=== PATIENT | female | born 1945 | race Caucasian/White ===

== ENCOUNTER 2016-10-26 17:58 | Observation (INO) | payer MEDICARE, MEDICAID ==
[~2016-10-26] VITALS: Ht 152.4 cm; Wt 88.9 kg
[2016-10-26 18:08] VITALS: BP 193/61; PULSE 94; RESP 16; O2SAT 97
--- NOTE | 2016-10-26 18:12 | ED.REPORT ---
HPI-Neurologic Deficit Date of Service Oct 26, 2016 ED Provider: Robson Farrell MD Pt is a 71 year old female with a history of type II diabetes who presents to the ED with a possible stroke onset around 1720 tonight. The family stated that the pt was normal while at the store, and when they drove away, her speech was clear but the words did not make sense. The pt states she was aware of her expressive aphasia at the time. Upon arrival to the ED, pt's slurred speech had cleared. Pt denies any other neurological deficits or symptoms at this time. Duration of symptoms was less than one half hour. No headache, trouble swallowing, now weakness or facial droop. . Nursing Notes Stated Complaint: SLURRED SPEECH/POSS STROKE Chief Complaint: Neuro Symptoms/ Deficits Nursing Notes Reviewed: Yes Allergies: Coded Allergies: ibuprofen (Verified Allergy, Severe, Abdominal Pain, 10/17/15) diazepam (Verified Allergy, Intermediate, Entergic, 10/17/15) Scheduled Insulin Glargine (Lantus U100 Solostar Insulin Pen) 100 Unit/1 Ml Insuln.pen 22- 24 UNIT SUBQ HS General Time Seen by Provider: 18:10 Chief Complaint Slurred speech Hx Obtained From: Patient, Son, Daughter Arrived By: Walk-in Sudden in Onset?: Yes Onset Occurred: 1 - 4 hours ago (1 hour ago) Severity: Current: No pain currently Severity: Maximum: No pain Related History: Reports: Diabetes mellitus Recent Healthcare: Recent doctor visit Similar Sx Previous: Yes Past Medical History Past Medical History Notes: PCP - Dr. Sirisha Ascencio Past Medical History Injured trapezius muscle Reports: Diabetes mellitus Past Surgical History denies Smoking History Unknown if Ever Smoker Social History Other Social History: Good social support, Local resident Ambulatory Status Wheelchair Review of Systems Expressive aphasia, resolved Neurologic: Reports: Slurred speech (resolved) Complete sys rev & neg: except as marked. Physical Exam Physical Exam Notes: Stroke scale 0 Initial Vital Signs Vital Signs (First) Date Time Temp Pulse Resp B/P Pulse Ox O2 Delivery O2 Flow Rate FiO2 10/26/16 18:08 36.6 94 16 193/61 97 Room Air Initial VS: Reviewed Extremities: Vascular intact, Neuro intact, No swelling, No tenderness Skin: Warm, Dry, No cyanosis Psychiatric: Mood/affect normal, Behavior normal, Normal thought content General/Constitutional: Awake, Alert Head / Eyes: Atraumatic, Normocephalic Irregular right pupil fixed, baseline Left pupil round and reactive Respiratory / Chest: Atraumatic, Breath sounds NL, Breath sounds = bilat, No respiratory distress Cardiovascular: Heart rate NL, Regular rhythm, Heart sounds NL, No gallop, No murmurs, No rubs Neurologic: Oriented X3, Speech NL (fluent) No facial droop or asymmetry Neck: Supple, Full range of motion, No carotid bruit Abdomen: Soft, Non-tender, BS normoactive Interpretation & Diagnostics CT ANGIO OF HEAD/NECK: IMPRESSION: 1. Mild bilateral internal carotid artery stenoses. 2. Patent bilateral vertebral arteries. 3. Incompletely visualized patchy right upper lobe opacity, consistent with pneumonia. Plain radiography of the chest is recommended for further assessment. Dictated by: Bossman Mathias M.D. on 10/26/2016 at 20:54 Approved by: Bossman Mathias M.D. on 10/26/2016 at 20:57 Lab Results Interpretation Result Diagram: 10/26/16 1846 10/26/16 1846 Test 10/26/16 18:46 White Blood Count 9.6th/mm3 (3.8-10.1) Red Blood Count 4.38mil/mm3 (3.90-5.20) Hemoglobin 12.5g/dL (12.0-15.6) Hematocrit 37.8% (35.0-46.0) Mean Corpuscular Volume 86.3fL (81-100) Mean Corpuscular Hemoglobin 28.5pg (27.0-35.0) Mean Corpuscular Hemoglobin Concent 33.1% (32.0-37.0) Red Cell Distribution Width 13.6% (12.3-15.4) Platelet Count 225bil/L (150-400) Neutrophils (%) (Auto) 70.7% (40-74) Lymphocytes (%) (Auto) 21.6% (14-46) Monocytes (%) (Auto) 5.0% (4-12) Eosinophils (%) (Auto) 2.1% (0-5) Basophils (%) (Auto) 0.3% (0-3) Prothrombin Time 9.5sec (8.1-12.5) Prothromb Time International Ratio 0.89ratio Sodium Level 143mEq/L (134-144) Potassium Level 4.1mEq/L (3.5-5.2) Chloride Level 106mEq/L (97-108) Carbon Dioxide Level 20mmol/L (18-29) Blood Urea Nitrogen 21mg/dL (8-27) Creatinine 0.71mg/dL (0.57-1.00) Estimat Glomerular Filtration Rate 117mL/min (>59) Glucose Level 159mg/dL (60-99) Calcium Level 9.8mg/dL (8.5-10.1) Total Bilirubin 0.3mg/dL (0.0-1.2) Aspartate Amino Transf (AST/SGOT) 21U/L (0-50) Alanine Aminotransferase (ALT/SGPT) 14U/L (0-32) Alkaline Phosphatase 163U/L (25-165) Troponin T < 0.010ug/L (0.0-0.011) Total Protein 7.2g/dL (6.4-8.4) Albumin 4.0g/dL (3.4-5.0) Triglycerides Level 185mg/dL (0-149) Cholesterol Level 214mg/dL (100-199) LDL Cholesterol, Calculated 131.000mg/dL (0-99) VLDL Cholesterol 37.000mg/dL HDL Cholesterol 46mg/dL (>39) Cholesterol/HDL Ratio 4.65 (0.0-4.4) Hold Barclay Top Tube Received (Received) ECG Interpretation ECG Interpretation: Sinus rhythm, rate 92 Time: 18:37 Interpreted by: ED physician CT Head Interpretation IMPRESSION: No acute intracranial abnormality. Dictated by: Bossman Mathias M.D. on 10/26/2016 at 18:40 Approved by: Bossman Mathias M.D. on 10/26/2016 at 18:41 Study: Head CT no contrast Interpretation / Wet Read by: Interpret - Radiologist Re-Eval/Medical Decision Med Decision/Clinical Course 8-year-old diabetic with transient speech difficulty suggesting TIA. She is noted to be hypertensive on arrival. Had no neurologic deficits on exam, CT was negative and following this aspirin was started. CT angiogram of the head and neck is completed and there is no indication for urgent intervention based on this. Blood pressure was trending downward, patient was admitted to the hospitalist service for further evaluation. Source of Hx: Old records Re-Evaluation/Progress #1: Time of Eval: 19:26 Patient Status: Condition improved Re-Evaluation/Progress Note: Pt rechecked. Discussed CT results, EKG, and plan for admission. Pt understands and agrees with plan. All questions addressed. Re-Evaluation/Progress #2: Time of Eval: 21:05 Re-Evaluation/Progress Note: Pt rechecked. Discussed results of CT angio of head/neck. NIH Stroke Scale : Level of Consciousness: Alert and responsive (0) Ask Month & Age: Both questions right (0) Open/Close Eyes/Hand Crown Ironer Operator: Performs both tasks (0) Horizontal EO Movements: None (0) Visual Cagle: No visual loss (0) Facial Palsy: Normal symmetry (0) Right Arm Motor Drift (10s): No drift 10 sec (0) Left Arm Motor Drift (10s): No drift 10 sec (0) Right Leg Motor Drift (5s): No drift 5 sec (0) Left Leg Motor Drift (5s): No drift 5 sec (0) Limb Ataxia FNF/Heel-Carroll: No ataxia (0) Sensation (Arms/Legs/Face): No sensory loss (0) Language Aphasia: No aphasia, normal (0) Dysarthria: No dysarthria, normal (0) Extinction/Inattention: No exctinct/inattent (0) NIHSS Score: 0 Time NIHSS Performed: 18:18 Date NIHSS Performed: Oct 26, 2016 Consultation : Referral / Consult Name: Reggie Solis MD Consulted With: Hospitalist Call Returned at: 19:41 Breaker Table Worker: Will see patient, Agrees with plan, Accepts admit Note: Discussed pt's case with hospitalist, Dr. Solis. He accepts admission. Counseled Regarding: Diagnosis, Lab results, Need for admission Discharge & Departure Impression: Primary Impression: Transient ischemic attack Transient cerebral ischemia type: unspecified Qualified Code: G45.9 - Transient cerebral ischemic attack, unspecified Additional Impression: Hypertension Hypertension type: unspecified secondary hypertension Qualified Code: I15.9 - Secondary hypertension, unspecified Disposition: ADMITTED TO HOSPITAL Discharge Condition All VS Reviewed: Yes Condition: Stable Referrals: Sirisha Ascencio PAC (PCP) Scribe Attestation Portions of this note were transcribed by Kathy Guevara. Dr. Jami Burgess, personally performed the history, physical exam and medical decision-making; I reviewed and confirmed the accuracy of the information in the transcribed note. copies to: Sirisha Ascencio Donald L MD Oct 26, 2016 18:12 Kathy Guevara Oct 26, 2016 18:14
--- NOTE | 2016-10-26 18:42 | DRSVH ---
PROCEDURE: CT BRAIN WITHOUT CONTRAST ([id number]) INDICATIONS: Stroke TECHNIQUE: Noncontrast 4.5 mm thick angled axial sections acquired from the foramen magnum to the vertex, with c oronal reformats. COMPARISON: None. FINDINGS: Image quality: Excellent. CSF spaces: Basal cisterns are patent. No extra-axial fluid collections. The ventricles are symmet veda in size and shape. Brain: No intracranial bleeds or masses. There is cerebral volume loss for age, with resultant vent ricular and sulcal prominence. There are periventricular and deep white matter chronic small vessel ischemic changes. There is intracranial internal carotid artery atherosclerosis. Skull and face: Calvarium and visualized facial bones appear intact, without suspicious lesions. Sinuses: Visualized sinuses and mastoids are clear. IMPRESSION: No acute intracranial abnormality. Dictated by: Bossman Mathias M.D. on 10/26/2016 at 18:40 Approved by: Bossman Mathias M.D. on 10/26/2016 at 18:41
[2016-10-26 18:48] VITALS: BP 188/73; PULSE 91; RESP 20; O2SAT 98
[2016-10-26 18:53] LABS: BASOPHILS % (AUTO) 0.3 % (0-3); EOSINOPHILS % (AUTO) 2.1 % (0-5); Mean Corpuscular Hemoglobin 28.5 pg (27.0-35.0); Mean Corpuscular Volume 86.3 fL (81-100); NEUTROPHILS % (AUTO) 70.7 % (40-74); Platelet Count 225 bil/L (150-400)
[2016-10-26 19:05] LABS: INR 0.89 ratio
[2016-10-26 19:15] LABS: TROPONIN T < 0.010 ug/L (0.0-0.011)
[2016-10-26] MEDS ORDERED: Labetalol 5 mg/mL 20 mL Inj IVPUSH PRN (19:50)
[2016-10-26] MEDS ORDERED: Ondansetron 2 mg/mL 2 mL Inj IVPUSH PRN (19:50)
[2016-10-26] MEDS ORDERED: Polyethylene Glycol (PEG) 17 Gm Powder PO PRN (19:50)
[2016-10-26] MEDS ORDERED: Alum-Mag Hydrox-Simeth 30 mL Suspension PO PRN (19:50)
[2016-10-26] MEDS ORDERED: INSU100I13 SUBQ (19:50)
[2016-10-26] MEDS ORDERED: Glucose 40% Oral Gel 15 Gm Tube PO PRN (20:10)
[2016-10-26 20:49] LABS: APPEARANCE,URINE HAZY (CLEAR,HAZY); COLOR,URINE YELLOW (YELLOW); PH,URINE 5.5 (5.0-8.0)
[2016-10-26 20:50] LABS: OCCULT BLOOD,URINE SMALL (NEGATIVE); UROBILINOGEN,URINE NORMAL (NORMAL)
--- NOTE | 2016-10-26 20:59 | DRSVH ---
PROCEDURE: CT ANGIO HEAD AND NECK (P) INDICATIONS: tia TECHNIQUE: Pre-contrast 4.5 mm thick sections acquired from the foramen magnum to the vertex. After the adminis tration of intravenous contrast, 1 mm thick sections acquired from the aortic arch through the [place] of [place]. Post-contrast 4.5 mm thick sections then re-acquired from the foramen magnum to the vert ex. 3-dimensional phxafxe-dxeseddpq-xotufiowvv (MIP) and/or volume rendering reformats were acquired of the central intracranial vasculature and neck separately. For radiation dose reduction, the foll owing was used: automated exposure control, adjustment of mA and/or kV according to patient size. COMPARISON: [facility], CT, CT BRAIN WO CON, 10/26/2016, 18:29. FINDINGS: Image quality: Excellent. BRAIN: CSF spaces: Ventricles are normal in size and shape. Basal cisterns are patent. No extra-axial flu id collections. Brain: No midline shift. No intracranial bleeds or masses. Cross-white matter interface appears int act. Skull and face: Calvarium and facial bones appear intact, without suspicious lesions. Orbits appear normal. Sinuses: Sinuses and mastoids are clear. HEAD CT ANGIOGRAPHY: Anterior circulation: Intracranial internal carotid arteries are normal in size and flow. The flow within the paired anterior cerebral arteries is normal and symmetric. The flow within the middle cer ebral arteries is normal and symmetric. The anterior communicating artery is seen. No aneurysms are seen. Posterior circulation: Visualized portions of the vertebral arteries demonstrate normal caliber, and join to form a normal appearing basilar artery. Flow within the posterior cerebral arteries is norm al and symmetric. No aneurysms are seen. NECK CT ANGIOGRAPHY: Carotid system: The great vessels demonstrate a conventional anatomy as they arise from the aortic a rch. The origins of the common carotid arteries appear patent. The common carotid arteries demonstr ate normal caliber and courses. There is roughly 10% origin stenosis of the right internal carotid ar arlen, and roughly 30% origin stenosis of the left internal carotid artery. Posterior circulation: The origins of the vertebral arteries both appear widely patent. The more marie perior extracranial portions of both vertebral arteries also demonstrate normal courses and calibers. They join to form a normal appearing basilar artery. Soft tissues: Visualized neck soft tissues demonstrate no suspicious abnormalities. There is mild p atchy opacity within the right upper lobe posteriorly. Bones: No suspicious bony lesions. Visualized cervical spine appears normally aligned. IMPRESSION: 1. Mild bilateral internal carotid artery stenoses. 2. Patent bilateral vertebral arteries. 3. Incompletely visualized patchy right upper lobe opacity, consistent with pneumonia. Plain radiogra phy of the chest is recommended for further assessment. Dictated by: Bossman Mathias M.D. on 10/26/2016 at 20:54 Approved by: Bossman Mathias M.D. on 10/26/2016 at 20:57
[2016-10-26] MEDS ORDERED: Insulin GLARgine 100 Unit/mL Syringe SUBQ SCH (21:00)
[2016-10-26 21:04] VITALS: BP 162/67; PULSE 93; RESP 20; O2SAT 98
[2016-10-26] MEDS: Heparin 5,000 Unit/mL Inj SUBQ SCH ×2 (21:06→23:50)
[2016-10-26 21:32] VITALS: BP 177/79; PULSE 18; PULSE 88; RESP 16; O2SAT 95
[2016-10-26] MEDS: Insulin LISPRO 300 Unit/3 mL Inj SUBQ SCH (22:00)
--- NOTE | 2016-10-26 22:11 | PCM.HPMED ---
Subjective Date of Service Oct 26, 2016 Primary Provider: Admitting Physician: Reggie Solis MD Primary Care Physician: Sirisha Ascencio Attending Physician: Reggie Solis MD Chief Complaint: Slurred Speech History of Present Illness: Patient is a 71 y/o female with past medical history of DMT2, insulin dependent, who began having slurred speech in the car this afternoon at 17:20. Patient was speaking with son, when all of a sudden she began to notice slurred speech and difficulty forming words. Symptoms lasted 5-10 minutes and resolved. Patient has never experienced these symptoms previously. Patient denies any BYRD, visual changes, hearing changes, weakness, numbness, CP, SOB, ABD pain, N/V/ D, or urinary symptoms. Patient denies any recent sickness and has only had allergy symptoms the past couple of weeks that includes runny nose and itchy eyes. Patient has never smoked cigarettes. Patient does not drink EtOH. In the ED, noncontrast CT was performed without any evidence of stroke. CT Angio was performed, and results are pending at the time of admission. Blood pressure was 193/61 in the ED. HR normal, temp normal, O2 sat 97% on Room Air. Review of Systems: ROS negative unless otherwise noted above. Allergies Coded Allergies: ibuprofen (Verified Allergy, Severe, Abdominal Pain, 10/17/15) diazepam (Verified Allergy, Intermediate, Entergic, 10/17/15) Home Medications Lantus 22-24U SubQ HS PMH Diabetes Mellitus T2 Surgical History Tonsillectomy Hysterectomy Cholecystectomy Cataracts Family History Mother - Diabetes T2 Father - CAD - " at age 44 from a coronary occlusion" Social History Hx Alcohol Use: No Hx Substance Use: No Hx Tobacco Use: No Smoking Status: Never Smoker Living Arrangement: with Family Exam Vital Signs Vital Sign - Last Date Time Temp Pulse Resp B/P Pulse Ox O2 Delivery O2 Flow Rate FiO2 10/26/16 18:48 91 20 188/73 98 Room Air 10/26/16 18:08 36.6 Exam Constitutional: Awake, alert and oriented x3. No acute distress Head: Normocephalic and atraumatic Eyes: right pupil fixed (baseline for patient), Left pupil round and reactive to light Heart: regular rate and rhythm. no murmurs, rubs, or gallops, no peripheral edema. Lungs: clear to auscultation bilaterally. no wheeze, rales, or rhonchi. Abd: soft, nontender, bowel sounds present throughout Musculoskeletal: moves all four extremities appropriately. Ambulating from stretcher to bed. Neuro: CN II-XII intact. No focal deficits. 5/5 strength in UE and LE. No slurred speech. Skin: warm, dry, no rash Psych: agitated, appropriate affect. Lab and Diagnostics Labs Item Value Date Time Triglycerides Level 185 mg/dL H 10/26/161845 Cholesterol Level 214 mg/dL H 10/26/161845 LDL Cholesterol, Calculated 131.000 mg/dL H 10/26/161845 VLDL Cholesterol 37.000 mg/dL 10/26/161845 HDL Cholesterol 46 mg/dL 10/26/161845 Cholesterol/HDL Ratio 4.65 H 10/26/161845 Item Value Date Time Red Blood Count 4.38 mil/mm3 10/26/161845 Hematocrit 37.8 % 10/26/161845 Mean Corpuscular Volume 86.3 fL 10/26/161845 Mean Corpuscular Hemoglobin 28.5 pg 10/26/161845 Mean Corpuscular Hemoglobin Concent 33.1 % 10/26/161845 Red Cell Distribution Width 13.6 % 10/26/161845 Neutrophils (%) (Auto) 70.7 % 10/26/161845 Lymphocytes (%) (Auto) 21.6 % 10/26/161845 Monocytes (%) (Auto) 5.0 % 10/26/161845 Eosinophils (%) (Auto) 2.1 % 10/26/161845 Basophils (%) (Auto) 0.3 % 10/26/161845 Estimat Glomerular Filtration Rate 117 mL/min 10/26/161845 Calcium Level 9.8 mg/dL 10/26/161845 Total Bilirubin 0.3 mg/dL 10/26/161845 Aspartate Amino Transf (AST/SGOT) 21 U/L 10/26/161845 Alanine Aminotransferase (ALT/SGPT) 14 U/L 10/26/161845 Alkaline Phosphatase 163 U/L 10/26/161845 Troponin T < 0.010 ug/L 10/26/161845 Total Protein 7.2 g/dL 10/26/161845 Albumin 4.0 g/dL 10/26/161845 Prothrombin Time 9.5 sec 10/26/161845 Prothromb Time International Ratio 0.89 ratio 10/26/161845 Result Diagram: 10/26/16184510/26/161845 X-Rays, CTs and MRIs PROCEDURE: CT BRAIN WITHOUT CONTRAST IMPRESSION: No acute intracranial abnormality. Dictated by: Bossman Mathias M.D. on 10/26/2016 at 18:40 PROCEDURE: CT ANGIO HEAD AND NECK IMPRESSION: 1. Mild bilateral internal carotid artery stenoses. 2. Patent bilateral vertebral arteries. 3. Incompletely visualized patchy right upper lobe opacity, consistent with pneumonia. Plain radiography of the chest is recommended for further assessment. 12-lead ECG Sinus Rhythm 92 Assessment & Plan Patient is a 71 y/o female with past medical history of DMT2, insulin dependent, who began having slurred speech in the car this afternoon at 17:20. Patient was speaking with son, when all of a sudden she began to notice slurred speech and difficulty forming words. Symptoms lasted 5-10 minutes and resolved -Acute Transient Ischemic Attack, Resolved, Stable - Patient with history of DMT2, presented after slurred speech without weakness that lasted roughly ten minutes. Sxs self resolved. - ABCD2 score 4, which places patient in a moderate risk for stroke in the future. Her 90 day stroke risk is 9.8%. - Non Contrast CT negative for Stroke, following up with CT Angio (study done while pt in ED) - US Carotids in AM - Cardiac Echo in AM - CT Angio HEAD and NECK showed mild bilat internal carotid stenosis - MR Angio of Head w/o contrast in AM - Start Statin therapy of 10mg PO HS, target LDL goal of less than 70mg/dL. - Order CBC, CMP, Lipid panel, HgbA1c - Start ASA 325mg Daily - Labetalol 10-20mg IV push Q10min for a goal BP - SBP 150 mmHg to 180 mmHg, DBP 90 mmHg to 105 mmHg - Swallow eval in AM - PT/OT eval in AM -Acute Uncontrolled Hypertension, POA, Active, Stable - Patient presented with BP 193/61 - Labetalol 10-20mg IV push Q10min - Use permissive HTN as above - Start patient on Lisinopril/HCTZ in AM. - Acute Hyperlipidemia, POA, Active, Stable - Patient with TIA sxs presented with LDL 131 and TG 185 - Start patient on Atorvastatin 10mg PO HS - History of DMT2, insulin dependent, POA, Stable - Continue Home dose Lantus 22-24U HS - Insulin gtt - Order HgbA1c as above NOTE: Patient believes in "naturopathic medicine", and is refusing all blood pressure and cholesterol medications. She will only take Lantus for her Diabetes. Disposition: Patient presenting with TIA sxs that have resolved is being admitted for further diagnostic studies and further stroke preventative risk reduction therapies. Length of stay is expected to be less than 2 midnight. Pain Evaluation: Adequate Pain Control GI Prophylaxis: Proton Pump Inhibitor VTE Prophylaxis Indicated: Meets Criteria for Anticoag Therapy VTE Prophylaxis: Sub-Q Heparin (Unfractionated) VTE Mechanical Devices: Intermittant Pneumatic CD Resuscitation Status: Limited Interventions Limited Interventions: Intubation w [facility] Vent Attending Statement The patient was seen and examined together with Dr. Sexton on 10/26 and I agree with the history, exam and plan as outlined in the note above. Elvin Sexton DO Oct 26, 2016 20:28 Reggie Solis MD Oct 26, 2016 23:30 Reggie Solis MD Oct 26, 2016 23:30
--- NOTE | 2016-10-26 22:54 | NUR ---
ADMISSION PATIENT ADMITTED TO ROOM 3016 ANXIOUS ABOUT MEDICAL CARE. REFUSES TO TAKE MEDICATIONS OTHER THAN LANTUS. LISTENED TO CONCERNS. ATE DINNER. SIGNED PAPERWORK FOR DIET. WATCHING TV.
[2016-10-27] VITALS (8 sets, daily range): BP systolic 155–187; BP diastolic 65–85; PULSE 67–86; RESP 16–19; O2SAT 94–97
--- NOTE | 2016-10-27 01:29 | NUR ---
patient concerns patient explained "my daughter was very angry with me. she doesn't want me to have a stroke because she doesnt want to take care of me." listened to concerns. explained the importance of medication to help avert stroke. patient agreed. but again said "i don't want medications." resting quietly.
--- NOTE | 2016-10-27 05:31 | NUR ---
hypertension bp 174/85. hr 86 patient stated "i might like to try a medication to help my blood pressure." discussed blood pressure medications and their general purposes. notified night resident via pradip mukherjee. Addendum: 10/27/16 at 0549 by MARIKA RIVERA RN spoke to night resident Darshan advised to reassure patient that her bp is within parameters and the day team will discuss her blood pressure with her. explained above. patient agreeable to plan.
[2016-10-27] MEDS: Insulin LISPRO 300 Unit/3 mL Inj SUBQ SCH ×3 (08:00→16:58)
[2016-10-27] MEDS ORDERED: Pantoprazole 20 mg ER24 Tablet PO SCH (08:30)
--- NOTE | 2016-10-27 10:07 | DRSVH ---
PROCEDURE: MRI BRAIN WITHOUT CONTRAST ([id number]) INDICATIONS: Stroke symptoms TECHNIQUE: Non-contrast axial T1 spin echo, axial T2 fast spin echo, sagittal and axial FLAIR, coronal T2 fast s pin echo, axial gradient echo, axial diffusion and ADC through the brain. COMPARISON: [facility], CT, CT ANGIO BRAIN AND NECK, 10/26/2016, 19:46. [facility], CT, CT BRAIN WO CON, 10/26/2016, 18:29. [facility], MR, MR CERVICAL SPINE WO CON, 05/19/2015, 19:00. FINDINGS: Image quality: Excellent. CSF spaces: Ventricles appear symmetric in size and shape. Basal cisterns are patent. No extra-axi al fluid collections. Brain: No intracranial bleeds or mass effects. There is cerebral volume loss for age. There are pe riventricular and deep white matter chronic small vessel ischemic changes. Brainstem appears normal. Diffusion-weighted images show no acute ischemic insults. No chronic ischemic insults. Normal int ravascular flow voids are present. Skull and face: Calvarial bone marrow is normal in signal. Orbits are normal. Note is made of bila teral lens replacements. Sinuses: Sinuses and mastoids are clear. IMPRESSION: No findings of acute or subacute infarction can be seen. Note is made of age-appropriate brain parenchymal volume loss and chronic small vessel ischemic xiao es. Dictated by: Pedro Narayan M.D. on 10/27/2016 at 10:03 Approved by: Pedro Narayan M.D. on 10/27/2016 at 10:05
[2016-10-27] MEDS: Heparin 5,000 Unit/mL Inj SUBQ SCH ×2 (10:26→16:30)
--- NOTE | 2016-10-27 12:14 | NUR ---
Social Work: Initial Assessment / Multidisciplinary Rounds Data: See initial assessment. Patient is a 71 year old female who was admitted on 10/26/16 for TIA per H&P. Patient's insurance is Medicare and [facility] Supp. Patient's PCP is MAGO Dunaway. EMR reviewed. YSBIL visited room to discuss discharge planning. SYBIL role explained. Patient was out of room for a procedure however, daughter Ann was at bedside and able to complete assessment. Ann confirms that patient lives alone in a home located at [place]. Patient is I at baseline with the assistance of a walker. Ann states that patient does not walk much but sits a lot due to chronic pain. Ann state that patient does not drive and relies on her children for transportation assistance. Patient does not have a DPOA or AD at this time. SYBIL has provided Ann with AD resources. Ann states that patient has not received home health services in 5 years when she was living in another state. Ann denies patient having local intermodal truck driver care insurance or VA benefits. Upon discharge, transportation will be provided by family. SYBIL provided Ann with a discharge planning checklist booklet and encouraged her to call with any questions or concerns. Phone number provided. Patient was discussed in morning rounds. No concerns were noted by MD or staff. SYBIL will continue to follow. Assessment: Patient who is from home alone and will likely return home at discharge. Plan: Patient will discharge home when medically stable by MD. Transportation will be provided by family. No needs are anticipated at this time. SYBIL will continue to follow. EDIN Watters Addendum: 10/27/16 at 1227 by KARTHIKEYAN GAFFNEY Amended: Links added.
--- NOTE | 2016-10-27 12:46 | DRSVH ---
[facility] [address] [place] [address] Echocardiogram Report Name: MARIVEL FLOYD Date: 10/27/2016 Height: 60 in Hospital Exam Location: [facility] Weight: 196 lb Gender: Female BSA: 1.9 m2 : 1945 Age: 71 yrs BP: 174/85 mmHg Reason For Study: Stroke symptoms Ordering Physician: HOSPITALIST [facility] Performed By: Nesha Manuel Referring Physician: [facility] Interpretation Summary The left ventricle is normal in size, wall thickness, and systolic function without any focal wall motion abnormalities. The ejection fraction is estimated to be 60-65%. The right ventricle is normal in size, thickness and function. Both atria are normal in size. There is no significant valvular heart disease. The aortic root is normal size. Mild atherosclerotic plaque(s) in the aortic arch. No obvious source for cardiac embolic source for stroke. Procedure: A two-dimensional transthoracic echocardiogram with color flow and Doppler was performed. The study quality was technically adequate. There is no prior echocardiogram noted for this patient. A contrast injection of Definity was performed to improve assessment of LV function. The patient was in normal sinus rhythm during the exam. Left Ventricle: The left ventricle is normal in size, wall thickness, and systolic function without any focal wall motion abnormalities. The ejection fraction is estimated to be 60-65%. Right Ventricle: The right ventricle is normal in size, thickness and function. Atria: Both atria are normal in size. The interatrial septum is intact with no evidence for an atrial septal defect. Mitral Valve: The mitral valve is normal. There is trace mitral regurgitation. Aortic Valve: The aortic valve is normal in structure and function. No aortic regurgitation is present. Tricuspid Valve: The tricuspid valve is normal. There is a trace or physiologic amount of tricuspid regurgitation. Pulmonic Valve: The pulmonic valve is normal in structure and function. There is no pulmonic valvular regurgitation. There is no significant valvular heart disease. Great Vessels: The aortic root is normal size. The ascending aorta is normal in size. The aortic arch is normal in size. Mild atherosclerotic plaque(s) in the aortic arch. The pulmonary artery is normal size. The IVC is of normal diameter and collapses greater than 50% with a sniff. This suggests a low right atrial pressure of 3 mm Hg. Pericardium/ Pleura There is no pericardial effusion. There is no pleural effusion. MMode/2D Measurements & Calculations LVIDd: 4.7 cm LVIDs: 3.3 cm LA A2 area: 20.3 cm FS: 29.4 % LA A4 area: 16.8 cm EPSS: 0.47 cm LA length (vol): 5.3 cm IVSd: 0.83 cm LA vol: 54.5 ml LVPWd: 0.74 cm LA vol index: 29.5 ml/m IVC diam: 1.9 cm RA long axis: 5.1 cm LVOT diam: 2.0 cm RA area: 15.2 cm AoV Openin.6 cm RA vol: 38.8 ml Ao root diam: 2.8 cm RA : 21.0 ml/m2 asc Aorta Diam: 3.3 cm Ao Arch Diam (Prox Trans): 2.8 cm LV jameson. diameter/BSA (cm/m^2): 2.5 LV sys. diameter/BSA (cm/m^2): 1.8 TAPSE: 2.6 cm Doppler Measurements & Calculations Ao V2 max: 176.5 cm/sec MV E max darius: 97.5 cm/sec Ao max P.5 mmHg MV A max darius: 87.4 cm/sec Ao mean P.7 mmHg MV P1/2t: 49.9 msec LVOT Max Darius: 109.6 cm/sec GUNNAR(I,D): 2.2 cm sev ratio: 0.73 MV E/A: 1.1 PA V2 max: 98.2 cm/sec PA mean P.1 mmHg MV dec time: 0.16 sec MV P1/2t max darius: 99.7 cm/sec MVA(P1/2t): 4.4 cm2 Ao V2 mean: 123.1 cm/sec LV V1 max P.8 mmHg Ao V2 VTI: 34.8 cm LV V1 VTI: 25.6 cm GUNNAR(V,D): 1.9 cm2 PA V2 mean: 67.2 cm/sec GUNNAR indexed to BSA (cm^2/m^2): 1.2 Reading Physician:SURY
--- NOTE | 2016-10-27 13:35 | PCM.DIMED ---
Discharge Instructions Date of Service Oct 27, 2016 Dates of Hospitalization Oct 26, 2016 at 20:08 Discharge Diagnosis Discharge Diagnosis acute dx TIA, in the setting of uncontrolled DM, HLD, HTN chronic dx Uncontrolled HLD uncontrolled DM Uncontrolled HTN Diet Discharge Diet: Low fat, Low Sodium, Heart Healthy Activity Discharge Activity: No restrictions Call your provider Call your provider for: Chest pain Patient Instructions Patient Instructions You were hospitalized with symptoms concerning for stroke. Even though radiologic studies didn't show any evidence of stroke. Given your risks factors , you have high risks of stroke in the future. Please consider taking more medication for you blood pressure, cholesterol, and your diabetes. It was strongly recommended to take medicines, however, after discussion, you refused to try any medications, therefore, no prescription was given upon discharge. Follow-up with PCP in: 1 week Afua Lebron MD Oct 27, 2016 13:35
--- NOTE | 2016-10-27 13:38 | NUR ---
Swallow order cancelled. Pt signed diet against advice waiver, per RN/pt/family pt is back to baseline with no concerns re: swallowing. ST provided education to pt/family regarding need to seek medical attention if new swallowing difficulties arise.
--- NOTE | 2016-10-27 13:51 | NUR ---
Social Work: Discharge / Brief Note EMR reviewed. Patient has been deemed medically stable for discharge today per MD. Transportation will be provided by patient's daughter who is at bedside. Patient has no additional needs at this time. EDIN Watters
--- NOTE | 2016-10-27 14:47 | PCM.DC.MED ---
Discharge Summary Date of Service Oct 27, 2016 Dates of Hospitalization Date of Hospital Admission Oct 26, 2016 at 20:08 Date of Discharge: Oct 27, 2016 Providers: Admitting Physician: Reggie Solis MD Primary Care Physician: Sirisha Ascencio Attending Physician: Afua Lebron MD Diagnosis at Time of Discharge Diagnosis at Time of Discharge acute dx TIA, in the setting of uncontrolled DM, HLD, HTN chronic dx Uncontrolled HLD uncontrolled DM Uncontrolled HTN Procedures XRay, CTs & MRIs PROCEDURE: CT BRAIN WITHOUT CONTRAST IMPRESSION: No acute intracranial abnormality. Dictated by: Bossman Mathias M.D. on 10/26/2016 at 18:40 PROCEDURE: CT ANGIO HEAD AND NECK IMPRESSION: 1. Mild bilateral internal carotid artery stenoses. 2. Patent bilateral vertebral arteries. 3. Incompletely visualized patchy right upper lobe opacity, consistent with pneumonia. Plain radiography of the chest is recommended for further assessment. ECG 12 Lead Sinus Rhythm 92 Brief History History of present illness obtained by on October 26 Patient is a 71 y/o female with past medical history of DMT2, insulin dependent, who began having slurred speech in the car this afternoon at 17:20. Patient was speaking with son, when all of a sudden she began to notice slurred speech and difficulty forming words. Symptoms lasted 5-10 minutes and resolved. Patient has never experienced these symptoms previously. Patient denies any BYRD, visual changes, hearing changes, weakness, numbness, CP, SOB, ABD pain, N/V/ D, or urinary symptoms. Patient denies any recent sickness and has only had allergy symptoms the past couple of weeks that includes runny nose and itchy eyes. Patient has never smoked cigarettes. Patient does not drink EtOH. In the ED, noncontrast CT was performed without any evidence of stroke. CT Angio was performed, and results are pending at the time of admission. Blood pressure was 193/61 in the ED. HR normal, temp normal, O2 sat 97% on Room Air. Hospital Course Patient is a 71 y/o female with past medical history of DMT2, insulin dependent, who began having slurred speech in the car this afternoon at 17:20. Patient was speaking with son, when all of a sudden she began to notice slurred speech and difficulty forming words. Symptoms lasted 5-10 minutes and resolved Patient was admitted for stroke workups. Initial expressive aphasia did not recur throughout the hospitalization. Patient remained neurologically intact. There was no radiologic evidence of stroke from CT angiogram and brain MRI. Patient was noted to have uncontrolled traditional risk factors with blood pressure, diabetes, hyperlipidemia. After extensive discussions with multiple providers, patient was still not convinced that she needs to take medication, mainly because of potential side effects she is worried. Patient again was strongly recommended to have further discussion with the primary doctor -Acute Transient Ischemic Attack, Resolved, Stable - Patient with history of DMT2, presented after slurred speech without weakness that lasted roughly ten minutes. Sxs self resolved. - ABCD2 score 4, which places patient in a moderate risk for stroke in the future. Her 90 day stroke risk is 9.8%. - Non Contrast CT negative for Stroke, following up with CT Angio (study done while pt in ED) - US Carotids in AM - Cardiac Echo in AM - CT Angio HEAD and NECK showed mild bilat internal carotid stenosis - MR Angio of Head w/o contrast in AM - Start Statin therapy of 10mg PO HS, target LDL goal of less than 70mg/dL. - Order CBC, CMP, Lipid panel, HgbA1c - Start ASA 325mg Daily - Labetalol 10-20mg IV push Q10min for a goal BP - SBP 150 mmHg to 180 mmHg, DBP 90 mmHg to 105 mmHg - Swallow eval in AM - PT/OT eval in AM -Acute Uncontrolled Hypertension, POA, Active, Stable - Patient presented with BP 193/61 - Labetalol 10-20mg IV push Q10min - Use permissive HTN as above - Start patient on Lisinopril/HCTZ in AM. - Acute Hyperlipidemia, POA, Active, Stable - Patient with TIA sxs presented with LDL 131 and TG 185 - Start patient on Atorvastatin 10mg PO HS - History of DMT2, insulin dependent, POA, Stable - Continue Home dose Lantus 22-24U HS - Insulin gtt - Order HgbA1c as above NOTE: Patient believes in "naturopathic medicine", and is refusing all blood pressure and cholesterol medications. She will only take Lantus for her Diabetes. Disposition: Patient presenting with TIA sxs that have resolved is being admitted for further diagnostic studies and further stroke preventative risk reduction therapies. Length of stay is expected to be less than 2 midnight. Exam Vital Signs (Last) Date Time Temp Pulse Resp B/P Pulse Ox O2 Delivery O2 Flow Rate FiO2 10/27/16 12:42 36.9 67 18 173/72 97 Room Air Exam Patient was examined on the day of discharge Test 10/26/16 18:46 10/26/16 20:35 White Blood Count 9.6th/mm3 (3.8-10.1) Red Blood Count 4.38mil/mm3 (3.90-5.20) Hemoglobin 12.5g/dL (12.0-15.6) Hematocrit 37.8% (35.0-46.0) Mean Corpuscular Volume 86.3fL (81-100) Mean Corpuscular Hemoglobin 28.5pg (27.0-35.0) Mean Corpuscular Hemoglobin Concent 33.1% (32.0-37.0) Red Cell Distribution Width 13.6% (12.3-15.4) Platelet Count 225bil/L (150-400) Neutrophils (%) (Auto) 70.7% (40-74) Lymphocytes (%) (Auto) 21.6% (14-46) Monocytes (%) (Auto) 5.0% (4-12) Eosinophils (%) (Auto) 2.1% (0-5) Basophils (%) (Auto) 0.3% (0-3) Prothrombin Time 9.5sec (8.1-12.5) Prothromb Time International Ratio 0.89ratio Sodium Level 143mEq/L (134-144) Potassium Level 4.1mEq/L (3.5-5.2) Chloride Level 106mEq/L (97-108) Carbon Dioxide Level 20mmol/L (18-29) Blood Urea Nitrogen 21mg/dL (8-27) Creatinine 0.71mg/dL (0.57-1.00) Estimat Glomerular Filtration Rate 117mL/min (>59) Glucose Level 159mg/dL (60-99) Hemoglobin A1c 8.4% (4.8-5.6) Calcium Level 9.8mg/dL (8.5-10.1) Total Bilirubin 0.3mg/dL (0.0-1.2) Aspartate Amino Transf (AST/SGOT) 21U/L (0-50) Alanine Aminotransferase (ALT/SGPT) 14U/L (0-32) Alkaline Phosphatase 163U/L (25-165) Troponin T < 0.010ug/L (0.0-0.011) Total Protein 7.2g/dL (6.4-8.4) Albumin 4.0g/dL (3.4-5.0) Triglycerides Level 185mg/dL (0-149) Cholesterol Level 214mg/dL (100-199) LDL Cholesterol, Calculated 131.000mg/dL (0-99) VLDL Cholesterol 37.000mg/dL HDL Cholesterol 46mg/dL (>39) Cholesterol/HDL Ratio 4.65 (0.0-4.4) Hold Barclay Top Tube Received (Received) Urine Color Yellow (YELLOW) Urine Appearance Hazy (CLEAR,HAZY) Urine pH 5.5 (5.0-8.0) Urine Specific Downing 1.025 (1.003-1.035) Urine Protein 100mg/dL (NEG,TRACE) Urine Glucose (UA) Negativemg/dL (NEGATIVE) Urine Ketones 15mg/dL (NEGATIVE) Urine Occult Blood Small (NEGATIVE) Urine Nitrite Positive (NEGATIVE) Urine Bilirubin Negative (NEGATIVE) Urine Urobilinogen Normalmg/dL (NORMAL) Urine Leukocyte Esterase Trace (NEGATIVE) Urine RBC 0-2/hpf (0-2) Urine WBC 0-5/hpf (0-5) Urine Epithelial Cells Moderate/hpf (NONE-MOD) Urine Crystals None seen (NONE SEEN) Urine Bacteria Many/hpf (NONE-FEW) Urine Hyaline Casts None/lpf (NONE) Urine Granular Casts None seen (NONE SEEN) Urine Waxy Casts None seen (NONE SEEN) Urine Red Blood Cell Casts None seen (NONE SEEN) Urine White Blood Cell Casts None seen (NONE SEEN) Urine Mucus None seen (None Seen) Urine Trichomonas None seen (NONE SEEN) Urine Yeast None (NONE SEEN) Urinalysis Comment None Urine Culture Reflexed Indicated Discharge Medications Discharge Medications Insulin Glargine (Lantus U100 Solostar Insulin Pen) 100 Unit/1 Ml Insuln.pen 22- 24 UNIT SUBQ HS (Reported) Followup Plan Disposition: Home Discharge Diet: Low fat, Low Sodium, Heart Healthy Discharge Activity: No restrictions Patient Instructions You were hospitalized with symptoms concerning for stroke. Even though radiologic studies didn't show any evidence of stroke. Given your risks factors , you have high risks of stroke in the future. Please consider taking more medication for you blood pressure, cholesterol, and your diabetes. It was strongly recommended to take medicines, however, after discussion, you refused to try any medications, therefore, no prescription was given upon discharge. Follow-up with PCP in: 1 week Time spent 65 minutes Afua Lebron MD Oct 27, 2016 14:47
[2016-10-27] MEDS ORDERED: AMLO5TAB2 PO (15:29)
--- NOTE | 2016-10-27 18:00 | NUR ---
Discharge Pt was still hypertensive after amilodapine. MD notified and stated to proceed with dc. Pt also still wanted to dc. Went over dc instructions with patient and family. Educated pain on importance of dietary changes, blood sugar control and hypertension. Removed IV. Pt left in wheel chair with no s/s of distress.
== END 2016-10-27 18:03 | disposition home or self-care (01) ==
LOC: SED 17:58 → MPC 20:08
PROVIDERS: ADMIT Hospitalist; ATTEND Internal Medicine
DX: R47.81 Slurred speech (principal); G45.9 Transient cerebral ischemic attack, unspecified; E11.9 Type 2 diabetes mellitus without complications; I10 Essential (primary) hypertension; E78.5 Hyperlipidemia, unspecified; Z79.4 Long term (current) use of insulin
CPT/HCPCS: 36415; 70450; 70496; 70498; 70551; 80053; 80061; 81000; 82948; 83036; 84484; 85025; 85610; 87086; 87088; 87186; 93005; 97162; 99285; C8929; G0378; J1644; J1815; Q9967